=== PATIENT | female | born 1935 | race Caucasian/White ===

== ENCOUNTER 2016-08-09 04:18 | Observation (INO) | payer MEDICARE, BC ==
[2016-08-09] MEDS ORDERED: AMIODARONE HCL200 M1 PO (04:38)
[2016-08-09] MEDS ORDERED: MULTIVITAMINS1 EAC7 PO (04:39)
[2016-08-09] MEDS ORDERED: APRISO0.375 G1 PO (04:39)
[2016-08-09] MEDS ORDERED: CARDIZEM CD PO (04:40)
[2016-08-09] MEDS ORDERED: DITROPAN XL10 M3 PO (04:41)
[2016-08-09] MEDS ORDERED: CLARITIN10 M6 PO (04:41)
[2016-08-09] MEDS ORDERED: ESTRADIOL0.5 M2 PO (04:41)
[2016-08-09] MEDS ORDERED: LASIX20 M1 PO (04:41)
[2016-08-09] MEDS ORDERED: SYSTANE ULTRA 010 M1 OP (04:42)
[2016-08-09] MEDS ORDERED: PLAQUENIL200 M1 PO (04:42)
[2016-08-09] MEDS ORDERED: VITAMIN D31000 UNI3 PO (04:43)
[2016-08-09] MEDS ORDERED: TYLENOL ARTHRI650 M1 PO (04:43)
[2016-08-09] MEDS ORDERED: XARELTO20 M1 PO (04:43)
[2016-08-09 07:16] LABS: BASO % 0.2 % (0-2); EOS % 0.1 % (0-7); HCT-HEMATOCRIT 29.8 % (34.0-49.0); HGB-HEMOGLOBIN 9.6 gm/dl (12.0-15.5); IMMATURE GRANULOCYTES ABSOLUTE 0.02 tho/cmm (0-0.03); IMMATURE GRANULOCYTES PERCENT 0.2 % (0-0.3); LYMPH % 7.1 % (20-45); LYMPH ABSOLUTE COUNT 0.7 tho/cmm (0.8-4.5); MCHC MEAN CORPUSCULAR HGB CONC 32.2 % (32.0-36.0); MEAN PLATELET VOLUME 9.3 cmc (9.4-12.4); MONOCYTE ABSOLUTE COUNT 0.3 tho/cmm (0.0-1.2); NEUTROPHIL ABSOLUTE COUNT 9.3 tho/cmm (1.6-8.0); NEUTROPHIL-AUTOMATED 9.3 tho/cmm (1.6-8.0); NEUTROPHILS % 89.4 % (40-80); PLATELET COUNT 307 tho/cmm (150-450); RED BLOOD COUNT 3.31 mil/cmm (4.00-5.20); WHITE BLOOD COUNT 10.4 tho/cmm (4.0-10.0)
[2016-08-09 07:32] LABS: ALB/GLOB RATIO 0.8 (0.8-2.0); ALBUMIN 3.3 g/dl (3.5-5.0); ALKALINE PHOSPHATASE 117 U/L (33-138); ALT/SGPT 20 U/L (12-78); ANION GAP 11 mmol/L (0-20); AST/SGOT 26 U/L (10-40); BILIRUBIN,TOTAL 0.3 mg/dl (0-1.5); BLOOD UREA NITROGEN 15 mg/dl (6-24); CALCIUM 8.7 mg/dl (8.5-10.5); CARBON DIOXIDE-VENOUS 26 mmol/L (22-32); CHLORIDE 105 mmol/l (96-110); CREATININE 0.66 mg/dl (0.50-1.10); GLUCOSE 158 mg/dL (70-110); POTASSIUM 3.3 mmol/L (3.7-5.1); SODIUM 139 mmol/L (135-145); eGFR VALUE FOR BLACK >90 mL/Min
[2016-08-10] MEDS ORDERED: PREDNISONE10 M1 PO (12:45)
== END 2016-08-10 13:45 ==
LOC: EDMED 04:18 → EMR2 07:19 → CAR1 12:55
PROVIDERS: Emergency Medicine; ADMIT Hospitalist
DX: J96.01 Acute respiratory failure with hypoxia (principal); I34.0 Nonrheumatic mitral (valve) insufficiency; J44.1 Chronic obstructive pulmonary disease with (acute) exacerbation; I48.91 Unspecified atrial fibrillation; M19.90 Unspecified osteoarthritis, unspecified site; Z79.01 Long term (current) use of anticoagulants; Z79.82 Long term (current) use of aspirin; Z79.899 Other long term (current) drug therapy; Z88.8 Allergy status to other drugs, medicaments and biological substances; Z85.51 Personal history of malignant neoplasm of bladder; Z87.01 Personal history of pneumonia (recurrent); Z87.891 Personal history of nicotine dependence; Z90.710 Acquired absence of both cervix and uterus; Z98.51 Tubal ligation status; Z98.890 Other specified postprocedural states
CPT/HCPCS: G0378; J0456; J2405; J2920; J2930; J7030; J7050